=== PATIENT | female | born 1965 | race Two or more races ===

== ENCOUNTER 2017-08-26 13:04 | Outpatient (CLI) | payer OTHER | END 2017-08-26 13:21 | disposition home or self-care (01) | LOC: MAMO-SONO 13:04 | DX: Z12.31 Encounter for screening mammogram for malignant neoplasm of breast (principal); N60.11 Diffuse cystic mastopathy of right breast ==

== ENCOUNTER 2018-09-29 14:41 | Outpatient (CLI) | payer OTHER | END 2018-09-29 15:11 | disposition home or self-care (01) | LOC: MAMO-SONO 14:41 | DX: Z12.31 Encounter for screening mammogram for malignant neoplasm of breast (principal); Z87.898 Personal history of other specified conditions; N63.10 Unspecified lump in the right breast, unspecified quadrant; N63.20 Unspecified lump in the left breast, unspecified quadrant ==

== ENCOUNTER 2019-10-06 13:41 | Outpatient (CLI) | payer OTHER | END 2019-10-06 13:44 | disposition home or self-care (01) | LOC: MAMO-SONO 13:41 | PROVIDERS: ATTEND Obstetrics & Gynecology | DX: Z12.31 Encounter for screening mammogram for malignant neoplasm of breast (principal); N60.11 Diffuse cystic mastopathy of right breast ==

== ENCOUNTER 2020-10-12 13:08 | Outpatient (CLI) | payer OTHER | END 2020-10-12 13:26 | disposition home or self-care (01) | LOC: MAMO-SONO 13:08 | PROVIDERS: ATTEND Obstetrics & Gynecology | DX: N60.11 Diffuse cystic mastopathy of right breast (principal) ==

== ENCOUNTER 2021-10-17 13:07 | Outpatient (CLI) | payer OTHER | END 2021-10-17 13:15 | disposition home or self-care (01) | LOC: MAMO-SONO 13:07 | PROVIDERS: ATTEND Obstetrics & Gynecology | DX: N60.11 Diffuse cystic mastopathy of right breast (principal) ==

== ENCOUNTER 2022-12-25 13:22 | Outpatient (CLI) | payer OTHER | END 2022-12-25 13:32 | disposition home or self-care (01) | LOC: MAMO-SONO 13:22 | PROVIDERS: ATTEND Obstetrics & Gynecology | DX: N60.11 Diffuse cystic mastopathy of right breast (principal); Z12.31 Encounter for screening mammogram for malignant neoplasm of breast ==

== ENCOUNTER 2023-02-11 12:14 | Outpatient (CLI) | payer OTHER | END 2023-02-11 12:21 | disposition home or self-care (01) | LOC: SONOGRAMA 12:14 | PROVIDERS: ATTEND Internal Medicine Gastroenterology | DX: R10.9 Unspecified abdominal pain (principal) ==

== ENCOUNTER 2024-02-13 10:04 | Outpatient (CLI) | payer OTHER | END 2024-02-13 10:14 | disposition home or self-care (01) | LOC: MAMO-SONO 10:04 | PROVIDERS: ATTEND Obstetrics & Gynecology | DX: N60.11 Diffuse cystic mastopathy of right breast (principal) ==

== ENCOUNTER 2024-10-06 10:35 | Outpatient (CLI) | payer OTHER | END 2024-10-06 10:40 | disposition home or self-care (01) | LOC: TOM 10:35 | PROVIDERS: ATTEND Specialist | DX: R91.1 Solitary pulmonary nodule (principal) ==